=== PATIENT | female | born 1955 | race American Indian/Alaskan Native ===

== ENCOUNTER 2021-06-08 17:21 | Emergency (ER) | payer MEDICARE ==
[2021-06-08 19:42] VITALS: BP 182/76
[2021-06-08 20:22] LABS: Bacteria,Urine 3+ /HPF (Negative); Bilirubin,Urine NEG (Negative); Blood,Urine NEG (Negative); Color,Urine Yellow (Yellow); Protein,Urine <15 mg/dL mg/dL (Negative); Urobilinogen,Urine < 2.0 mg/dL (<2.0)
[2021-06-08 21:52] LABS: Alanine Aminotransferase 37 units/L (7-56); Albumin 3.8 g/dL (3.9-5); BUN/Creatinine Ratio 28; Blood Urea Nitrogen 25 mg/dL (7-17); Hemolysis Index 51
[2021-06-08 22:00] LABS: Mean Corpuscular HGB Conc 30 % (30-34); Mean Corpuscular Volume 72 fl (79-97); Platelet Count 260 K/mm3 (140-440); Red Blood Count 4.94 M/mm3 (3.65-5.03); Red Cell Distribution Width 17.6 % (13.2-15.2)
[2021-06-08 22:07] LABS: Hematocrit 35.5 % (30.3-42.9); Hemoglobin 10.6 gm/dl (10.1-14.3)
[2021-06-08] MEDS ORDERED: INSULIN REGULAR, HUMAN 100 UNITS/1 ML SUB-Q ONE (23:08)
[2021-06-08] MEDS ORDERED: SODIUM CHLORIDE 0.9% 1000 ML 1,000 ML IV ONE (23:08)
[2021-06-08] MEDS ORDERED: POTASSIUM CHLORIDE ER 20 MEQ TAB PO ONE (23:08)
--- NOTE | 2021-06-08 23:15 | Emergency Department Report ---
ED Recheck HPI - General Chief Complaint: Hyperglycemia Stated Complaint: BLOOD SUGAR HIGH Time Seen by Provider: 06/08/21 21:03 Source: patient Mode of arrival: Ambulatory Limitations: No Limitations - History of Present Illness Initial Comments: 65-year-old obese [place] female presents emerge department from planing of abnormal labs after going to her doctor's office on yesterday discovering that her blood glucose was elevated. She was notified by the office that she had new onset diabetes and advised her to go to the emergency department so she can seek further testing and diabetic treatment initiation. Patient states she is also asymptomatic with exception of polyuria and was confused as to why she had to go to the emergency department but follow the instructions which was reasons why she is here today. She reports no chest pain, no palpitations no fever, chills, sweats. No nausea, no vomiting, no hemoptysis hematemesis hematochezia no headache or presyncope -: Gradual Returns Today for: CBOAL - Related Data Previous Rx's Medication Instructions Recorded Last Taken Type Blood-Glucose Meter [Accu-Chek 1 each MC DAILY #1 each 06/08/21 Unknown Rx Guide Me Glucose Mtr] metFORMIN [Glucophage] 500 mg PO QDAY #30 tab 06/08/21 Unknown Rx Allergies Allergy/AdvReac Type Severity Reaction Status Date / Time ibuprofen Allergy Unknown Verified 06/08/21 19:45 ED Review of Systems ROS: Stated complaint: BLOOD SUGAR HIGH Other details as noted in HPI Comment: All other systems reviewed and negative ED Past Medical Hx - Medications Home Medications: Home Medications Medication Instructions Recorded Confirmed Last Taken Type Blood-Glucose Meter [Accu-Chek 1 each MC DAILY #1 each 06/08/21 Unknown Rx Guide Me Glucose Mtr] metFORMIN [Glucophage] 500 mg PO QDAY #30 tab 06/08/21 Unknown Rx ED Physical Exam - General Limitations: No Limitations General appearance: alert, in no apparent distress - Head Head exam: Present: atraumatic, normocephalic - Eye Eye exam: Present: normal appearance - ENT ENT exam: Present: mucous membranes moist - Neck Neck exam: Present: normal inspection - Respiratory Respiratory exam: Present: normal lung sounds bilaterally. Absent: respiratory distress - Cardiovascular Cardiovascular Exam: Present: regular rate, normal rhythm. Absent: systolic murmur, diastolic murmur, rubs, gallop - GI/Abdominal GI/Abdominal exam: Present: soft, normal bowel sounds - Extremities Exam Extremities exam: Present: normal inspection - Back Exam Back exam: Present: normal inspection - Neurological Exam Neurological exam: Present: alert, oriented X3 - Psychiatric Psychiatric exam: Present: normal affect, normal mood - Skin Skin exam: Present: warm, dry, intact, normal color. Absent: rash ED Course Vital Signs 06/08/21 19:37 Temperature 97.6 F Pulse Rate 74 Respiratory 18 Rate Blood Pressure 182/76 O2 Sat by Pulse 98 Oximetry Critical care attestation.: If time is entered above; I have spent that time in minutes in the direct care of this critically ill patient, excluding procedure time. ED Disposition Disposition: HOME / SELF CARE / HOMELESS Condition: Stable Instructions: Type 2 Diabetes Mellitus, Diagnosis, Adult, Tips for Eating Away From Home If You Have Diabetes, Diabetes Mellitus and Sick Day Management, Type 2 Diabetes Mellitus, Self Care, Adult, Type 2 Diabetes Mellitus, Self Care, Adult, [id number], Type 2 Diabetes Mellitus, Diagnosis, Adult, [id number], Diabetes Mellitus Type 2 in Adults (ED) Prescriptions: Blood-Glucose Meter [Accu-Chek Guide Me Glucose Mtr] 1 each MC DAILY #1 each metFORMIN [Glucophage] 500 mg PO QDAY #30 tab Referrals: PRIMARY CARE, [Primary Care Provider] - 3-5 Days
[2021-06-09 03:06] LABS: Basophils % (Manual) 0 % (0.0-1.8); Total Cells Counted 100
[2021-06-09 03:08] LABS: Anisocytosis 1+; Hypochromasia 1+; Platelet Estimate Consistent w Auto
== END 2021-06-09 01:27 | disposition home or self-care (01) ==
LOC: ED 17:21
DX: R73.9 Hyperglycemia, unspecified (principal); Z91.09 Other allergy status, other than to drugs and biological substances
CPT/HCPCS: 36415; 80053; 81001; 82962; 85007; 85025; 96360; 96372; 99283; J7030; Q0162; Q9967; J1815